=== PATIENT | female | born 1980 | race Caucasian/White ===

== ENCOUNTER 2017-05-03 22:51 | Emergency (ER) | payer OTHER ==
[~2017-05-03] VITALS: Ht 154.9 cm; Wt 148.2 kg
[2017-05-03] MEDS ORDERED: IBUP-1546 PO (23:46)
[2017-05-04] MEDS ORDERED: BACLOFEN 10 MG TABLET PO ONE (04:30)
[2017-05-04 05:30] VITALS: BP 139/89
== END 2017-05-04 05:32 | disposition home or self-care (01) ==
LOC: EMS 22:55
DX: M54.12 Radiculopathy, cervical region (principal); M79.641 Pain in right hand
CPT/HCPCS: 72050; 99284

== ENCOUNTER 2019-08-16 14:28 | Emergency (ER) | payer OTHER ==
[~2019-08-16] VITALS: Ht 162.6 cm; Wt 147.3 kg
[~2019-08-16 14:28] MED LIST: IBUP-1506 PO
[2019-08-16] MEDS ORDERED: AZIT250T9 PO (14:49)
[2019-08-16] MEDS ORDERED: PROM5SYR2 PO (14:49)
[2019-08-16] MEDS ORDERED: ALBU8HFA IH (14:49)
[2019-08-16] MEDS ORDERED: BECL10.6 IH (14:49)
[2019-08-16] MEDS ORDERED: [UNRECOGNIZED DRUG - REMARK] PO (14:49)
[2019-08-16] MEDS ORDERED: HYDR25TA PO (14:59)
[2019-08-16] MEDS ORDERED: PredniSONE 20 MG TABLET PO ONE (16:15)
[2019-08-16] MEDS ORDERED: ALBUTEROL SULFATE 5 MG/ML 20 ML NEB SOLN [BULK] NEB ONE (16:15)
[2019-08-16] MEDS ORDERED: IPRATROPIUM BROMIDE 0.5 MG/2.5 ML NEB SOLUTION NEB ONE (16:15)
[2019-08-16] MEDS ORDERED: BECL10.62 IH (16:23)
[2019-08-16] MEDS ORDERED: 0.9% SODIUM CHLORIDE 5 ML NEB SOLUTION NEB ONE (16:28)
[2019-08-16 16:52] LABS: EOSINOPHILS % (AUTO) 1.8 % (1.0-6.0); HEMATOCRIT 41.1 % (36-46); HEMOGLOBIN 13.5 g/dL (12.0-16.0); LYMPHOCYTES % (AUTO) 33.8 % (22.0-44.0); MEAN CORPUSCULAR HEMOGLOBIN 28.1 pg (26.0-34.0); MEAN CORPUSCULAR HGB CONC 32.8 G/dL (31.0-37.0); MEAN CORPUSCULAR VOLUME 86 fL (80-100); MONOCYTES # (AUTO) 1.2 K/uL (0.1-1.0); MONOCYTES % (AUTO) 7.7 % (2.0-9.0); NEUTROPHILS # (AUTO) 8.3 K/uL (1.8-7.7); NEUTROPHILS % (AUTO) 55.7 % (40.0-70.0); PLATELET COUNT (AUTO) 278 K/uL (150-450); RED BLOOD CELL COUNT(AUTO) 4.81 MIL/uL (4.00-5.20); RED CELL DISTRIBUTION WIDTH 14.6 % (11.5-14.5)
[2019-08-16 17:04] LABS: ANION GAP 9 mmol/L (8-16); CALCIUM, TOTAL 9.5 mg/dL (8.8-10.5); CARBON DIOXIDE 28 mmol/L (22-29); CHLORIDE 101 mmol/L (98-107); CREATININE 0.83 mg/dL (0.60-1.30); GLOMERULAR FILTR. RATE CALC > 60 mL/min (>60); GLUCOSE,RANDOM 93 mg/dL (70-110); POTASSIUM 3.4 mmol/L (3.5-5.1); SODIUM SERUM 138 mmol/L (136-145); UREA NITROGEN, BLOOD 13 mg/dL (7-18)
[2019-08-16 17:18] LABS: B-TYPE NATRIURETIC PEPTIDE 72 pg/mL (0-100)
[2019-08-16] MEDS ORDERED: IOVERSOL 320 MG/ML 100 ML VIAL ONE (18:09)
[2019-08-16] MEDS ORDERED: SODIUM CHLORIDE 0.9% 100 ML ONE (18:09)
[2019-08-16] MEDS ORDERED: DiphenhydrAMINE HCL 50 MG/ML VIAL IVP ONE (18:30)
[2019-08-16 20:35] VITALS: BP 124/75
== END 2019-08-16 20:38 | disposition home or self-care (01) ==
LOC: EMS 14:29
DX: J45.909 Unspecified asthma, uncomplicated (principal); R07.89 Other chest pain; I10 Essential (primary) hypertension; Z79.899 Other long term (current) drug therapy; Z90.49 Acquired absence of other specified parts of digestive tract
CPT/HCPCS: 36415; 71045; 71275; 80048; 83880; 84484; 85025; 93005; 94644; 96374; 99285; J1200; J7050; J7512; Q9967

== ENCOUNTER 2020-08-30 20:25 | Emergency (ER) | payer OTHER ==
[~2020-08-30] VITALS: Ht 154.9 cm; Wt 154.6 kg
[~2020-08-30 20:25] MED LIST changes: +ALBU8HFA IH; +AZIT-84 PO; +BECL10.62 IH; +HYDR-1475 PO; -IBUP-1506 PO; +PROM5SYR2 PO
[2020-08-30 20:38] VITALS: BP 123/79
[2020-08-30] MEDS ORDERED: LOSA-30 PO (20:42)
[2020-08-31] MEDS ORDERED: ACET-66 PO (08:24)
== END 2020-08-30 20:48 | disposition left against medical advice (07) ==
LOC: EMS 20:25
DX: I10 Essential (primary) hypertension (principal); Z53.21 Procedure and treatment not carried out due to patient leaving prior to being seen by health care provider

== ENCOUNTER 2020-09-03 10:12 | Day surgery (SDC) | payer OTHER ==
[2020-08-31 08:41] LABS: COVID AG,FIA SOURCE NASOPHARYNGEAL
[~2020-09-03] VITALS: Ht 154.9 cm; Wt 145.5 kg
[~2020-09-03 10:12] MED LIST changes: +ACET-66 PO; -AZIT-84 PO; -BECL10.62 IH; -HYDR-1475 PO; +LOSA-30 PO; -PROM5SYR2 PO; +SODIUM CHLORIDE 0.9% 1,000 ML ONE
[2020-09-03] MEDS ORDERED: SODIUM CHLORIDE 0.9% 1,000 ML IV ONE (11:00)
== END 2020-09-03 14:35 | disposition home or self-care (01) ==
LOC: SURGERY 10:12
PROVIDERS: ATTEND Internal Medicine Gastroenterology
DX: K21.00 Gastro-esophageal reflux disease with esophagitis, without bleeding (principal); K29.50 Unspecified chronic gastritis without bleeding; E66.01 Morbid (severe) obesity due to excess calories; J45.909 Unspecified asthma, uncomplicated; I10 Essential (primary) hypertension; Z91.018 Allergy to other foods; Z79.899 Other long term (current) drug therapy
CPT/HCPCS: 43239; 84703; 87426; 88305; 88312; 88313; C1769; C9803; J7030

== ENCOUNTER 2021-03-21 17:28 | Emergency (ER) | payer OTHER ==
[~2021-03-21] VITALS: Ht 165.1 cm; Wt 113.6 kg
[~2021-03-21 17:28] MED LIST changes: +ACET-3385 PO; -ACET-66 PO; -SODIUM CHLORIDE 0.9% 1,000 ML ONE
[2021-03-21] MEDS ORDERED: SODIUM CHLORIDE 0.9% 1,000 ML IV ONE (18:30)
[2021-03-21 18:59] LABS: BASOPHILS % (AUTO) 0.9 % (0.0-2.0); EOSINOPHILS % (AUTO) 0.7 % (1.0-6.0); HEMATOCRIT 41.9 % (36-46); HEMOGLOBIN 13.9 g/dL (12.0-16.0); LYMPHOCYTES # (AUTO) 3.8 K/uL (1.0-4.8); MEAN CORPUSCULAR HEMOGLOBIN 28.2 pg (26.0-34.0); MEAN CORPUSCULAR HGB CONC 33.1 G/dL (31.0-37.0); MEAN CORPUSCULAR VOLUME 85 fL (80-100); MONOCYTES # (AUTO) 1.6 K/uL (0.1-1.0); MONOCYTES % (AUTO) 11.4 % (2.0-9.0); NEUTROPHILS # (AUTO) 8.4 K/uL (1.8-7.7); PLATELET COUNT (AUTO) 290 K/uL (150-450); RED BLOOD CELL COUNT(AUTO) 4.92 MIL/uL (4.00-5.20); RED CELL DISTRIBUTION WIDTH 13.4 % (11.5-14.5)
[2021-03-21 19:12] LABS: CALCIUM, TOTAL 9.6 mg/dL (8.8-10.5); CREATININE 1.26 mg/dL (0.60-1.30)
[2021-03-21 19:26] LABS: ALBUMIN 4.3 g/dL (3.4-5.0); BILIRUBIN,TOTAL 0.5 mg/dL (0.1-1.0); MAGNESIUM 1.4 mg/dL (1.80-2.40); TOTAL PROTEIN, SERUM 7.9 g/dL (6.4-8.2)
[2021-03-21] MEDS ORDERED: POTASSIUM CHLORIDE 20 MEQ ER TABLET PO ONE (19:45)
[2021-03-21] MEDS ORDERED: MAGNESIUM SULFATE 1 GM in DEXTROSE 5%-WATER 50 ML IV ONE (19:45)
[2021-03-21 19:59] VITALS: BP 114/67
[2021-03-21 20:23] LABS: APPEARANCE,URINE CLEAR (CLEAR); BILIRUBIN,URINE NEGATIVE (NEGATIVE); GLUCOSE, URINE (UA) NEGATIVE (NEGATIVE); KETONES,URINE 15 mg/dL (NEGATIVE); LEUKOCYTE ESTERASE ,URINE NEGATIVE (NEGATIVE); NITRATE,URINE NEGATIVE (NEGATIVE); OCCULT BLOOD,URINE TRACE (NEGATIVE); PROTEIN,URINE NEGATIVE (NEGATIVE); UROBILINOGEN,URINE 0.2 mg/dL (<=1.0)
[2021-03-21 20:57] LABS: BACTERIA,URINE Moderate /HPF (None Seen); RBC,URINE 0-2 /HPF (0-2); SQUAMOUS EPITHELIAL CELL,UR Few /LPF (None Seen); WBC,URINE 0-2 /HPF (0-5)
== END 2021-03-21 22:18 | disposition home or self-care (01) ==
LOC: EMS 17:35
DX: I95.9 Hypotension, unspecified (principal); E83.42 Hypomagnesemia; E87.6 Hypokalemia; D72.829 Elevated white blood cell count, unspecified; J45.909 Unspecified asthma, uncomplicated; I10 Essential (primary) hypertension
CPT/HCPCS: 36415; 71045; 80053; 81001; 83605; 83690; 83735; 84484; 84702; 85025; 87040; 87086; 93005; 96361; 96365; 96366; 99285; J3475; J7060; 99284

== ENCOUNTER 2022-03-27 17:12 | Emergency (ER) | payer OTHER ==
[~2022-03-27] VITALS: Ht 154.9 cm; Wt 103.4 kg
[2022-03-27] MEDS ORDERED: PHEN15CA61 PO (17:19)
[2022-03-27] MEDS ORDERED: IPRATROPIUM BROMIDE 0.5 MG/2.5 ML NEB SOLUTION NEB ONE (19:30)
[2022-03-27] MEDS ORDERED: PredniSONE 20 MG TABLET PO ONE (19:30)
[2022-03-27] MEDS ORDERED: ALBUTEROL SULFATE 5 MG/ML 20 ML NEB SOLN [BULK] NEB ONE (19:30)
[2022-03-27 19:33] VITALS: BP 119/75
[2022-03-27 19:54] LABS: COVID AG,FIA SOURCE NASOPHARYNGEAL
[2022-03-27] MEDS ORDERED: BENZ-70 PO (20:24)
[2022-03-27] MEDS ORDERED: PRED-554 PO (20:24)
[2022-03-27] MEDS ORDERED: ALBUTEROL SULFATE HFA 90 MCG/PUFF 8 GM INHALER IH ONE (20:30)
== END 2022-03-27 20:30 | disposition home or self-care (01) ==
LOC: EMS 17:49
DX: J45.909 Unspecified asthma, uncomplicated (principal); I10 Essential (primary) hypertension; Z90.49 Acquired absence of other specified parts of digestive tract; Z98.890 Other specified postprocedural states; Z20.822 Contact with and (suspected) exposure to COVID-19
CPT/HCPCS: 71045; 87426; 94640; 99284; J7512; 94644; J3535

== ENCOUNTER 2022-10-11 20:16 | Emergency (ER) | payer OTHER ==
[~2022-10-11] VITALS: Ht 154.9 cm; Wt 90.0 kg
[~2022-10-11 20:16] MED LIST changes: -ACET-3385 PO; +BENZ-70 PO; -LOSA-30 PO; +PHEN15CA61 PO; +PRED-554 PO
[2022-10-11 21:22] LABS: COVID AG,FIA SOURCE NASOPHARYNGEAL
[2022-10-11 21:48] VITALS: BP 106/68
[2022-10-11 21:51] LABS: INFLUENZA TYPE A NEGATIVE FOR TYPE A (NEGATIVE); INFLUENZA TYPE B NEGATIVE FOR TYPE B (NEGATIVE)
== END 2022-10-11 23:08 | disposition home or self-care (01) ==
LOC: EMS 20:17
DX: U07.1 COVID-19 (principal); J45.909 Unspecified asthma, uncomplicated; I10 Essential (primary) hypertension; Z90.49 Acquired absence of other specified parts of digestive tract; Z98.890 Other specified postprocedural states
CPT/HCPCS: 87804; 99283

== ENCOUNTER 2023-10-13 16:10 | Emergency (ER) | payer OTHER ==
[~2023-10-13] VITALS: Ht 157.5 cm; Wt 81.0 kg
[~2023-10-13 16:10] MED LIST changes: +ALBU18HF12 IH; -ALBU8HFA IH; +BENZ-227 PO; -BENZ-70 PO
[2023-10-13 17:04] LABS: COVID AG,FIA SOURCE NASAL SWAB
[2023-10-13 17:19] LABS: BASOPHILS % (AUTO) 0.9 % (0.0-2.0); EOSINOPHILS % (AUTO) 2.1 % (1.0-6.0); HEMATOCRIT 35.9 % (36-46); HEMOGLOBIN 12.1 g/dL (12.0-16.0); LYMPHOCYTES # (AUTO) 4.1 K/uL (1.0-4.8); LYMPHOCYTES % (AUTO) 42.6 % (22.0-44.0); MEAN CORPUSCULAR HGB CONC 33.7 G/dL (31.0-37.0); MEAN CORPUSCULAR VOLUME 86 fL (80-100); MONOCYTES % (AUTO) 10.4 % (2.0-9.0); NEUTROPHILS # (AUTO) 4.2 K/uL (1.8-7.7); PLATELET COUNT (AUTO) 253 K/uL (150-450); RED BLOOD CELL COUNT(AUTO) 4.18 MIL/uL (4.00-5.20); RED CELL DISTRIBUTION WIDTH 13.3 % (11.5-14.5); WHITE BLOOD COUNT (AUTO) 9.6 K/uL (4.5-11.0)
[2023-10-13 17:33] LABS: ANION GAP 7 mmol/L (8-16); CALCIUM, TOTAL 8.9 mg/dL (8.8-10.5); CARBON DIOXIDE 30 mmol/L (22-29); CHLORIDE 104 mmol/L (98-107); CREATININE 0.68 mg/dL (0.60-1.30); GLOMERULAR FILTR. RATE CALC > 60 mL/min (>60); GLUCOSE,RANDOM 78 mg/dL (70-110); POTASSIUM 3.7 mmol/L (3.5-5.1); SODIUM SERUM 141 mmol/L (136-145); UREA NITROGEN, BLOOD 11 mg/dL (7-18)
[2023-10-13 17:40] LABS: ALANINE AMINOTRANSFERASE 25 U/L (12-78); ALKALINE PHOSPHATASE 70 U/L (46-116); ASPARTATE AMINOTRANSFERASE 22 U/L (15-37); BILIRUBIN,TOTAL 0.3 mg/dL (0.1-1.0); TOTAL PROTEIN, SERUM 7.1 g/dL (6.4-8.2)
[2023-10-13 17:43] LABS: TROPONIN I-HIGH SENSITIVITY Less Than 4 ng/L (<51)
[2023-10-13 17:44] LABS: SARS-COV2 (COVID) ANTIGEN,FIA Negative (Negative)
[2023-10-13 17:46] LABS: INFLUENZA TYPE A NEGATIVE FOR TYPE A (NEGATIVE); INFLUENZA TYPE B NEGATIVE FOR TYPE B (NEGATIVE)
[2023-10-13 18:15] VITALS: PULSE 63; RESP 16; O2SAT 99
[2023-10-13] MEDS ORDERED: IPRATROPIUM BROMIDE 0.5 MG/2.5 ML NEB SOLUTION NEB ONE (18:15)
[2023-10-13] MEDS ORDERED: ALBUTEROL SULFATE 2.5 MG/0.5 ML NEB SOLUTION NEB ONE (18:15)
[2023-10-13 18:25] VITALS: PULSE 68; RESP 16; O2SAT 99
[2023-10-13 19:56] VITALS: TEMP 99.3
[2023-10-13 19:57] VITALS: BP 112/67; PULSE 88; RESP 18
[2023-10-13] MEDS ORDERED: ALBU18HF12 IH (19:58)
== END 2023-10-13 20:15 | disposition home or self-care (01) ==
LOC: EMS 16:12
DX: J06.9 Acute upper respiratory infection, unspecified (principal); J45.909 Unspecified asthma, uncomplicated; I10 Essential (primary) hypertension; Z90.49 Acquired absence of other specified parts of digestive tract; Z98.890 Other specified postprocedural states; Z20.822 Contact with and (suspected) exposure to COVID-19
CPT/HCPCS: 71045; 80053; 84484; 85025; 87804; 93005; 94640; 99285; 36415-L1; 36415-TC; J7613

== ENCOUNTER 2025-01-30 08:34 | Emergency (ER) | payer OTHER ==
[~2025-01-30] VITALS: Ht 154.9 cm; Wt 79.5 kg
[2025-01-30 08:52] VITALS: TEMP 98
[2025-01-30 09:14] LABS: COVID AG,FIA SOURCE NASAL SWAB
[2025-01-30 09:42] LABS: INFLUENZA TYPE A NEGATIVE FOR TYPE A (NEGATIVE); INFLUENZA TYPE B NEGATIVE FOR TYPE B (NEGATIVE); SARS-COV2 (COVID) ANTIGEN,FIA Negative (Negative)
[2025-01-30] MEDS: ALBUTEROL SULFATE 2.5 MG/0.5 ML NEB SOLUTION NEB ONE (09:50)
[2025-01-30] MEDS: IPRATROPIUM BROMIDE 0.5 MG/2.5 ML NEB SOLUTION NEB ONE (09:50)
[2025-01-30 09:53] VITALS: PULSE 76; RESP 16; O2SAT 99
[2025-01-30 10:08] VITALS: PULSE 68; RESP 16; O2SAT 100
[2025-01-30 10:37] LABS: TROPONIN I-HIGH SENSITIVITY 4 ng/L (<51)
[2025-01-30 11:13] VITALS: BP 93/56; PULSE 67; RESP 13; O2SAT 97
[2025-01-30] MEDS ORDERED: ALBU18HF12 IH (12:29)
[2025-01-30] MEDS ORDERED: PRED-554 PO (12:31)
== END 2025-01-30 13:00 | disposition home or self-care (01) ==
LOC: EMS 08:38
DX: J06.9 Acute upper respiratory infection, unspecified (principal); I10 Essential (primary) hypertension; J45.909 Unspecified asthma, uncomplicated; Z79.52 Long term (current) use of systemic steroids; Z91.041 Radiographic dye allergy status; Z90.49 Acquired absence of other specified parts of digestive tract; Z91.018 Allergy to other foods; Z20.822 Contact with and (suspected) exposure to COVID-19
CPT/HCPCS: 71045; 84484; 87804; 93005; 94640; 99285; 36415-L1; 36415-TC; J7613